=== PATIENT | male | born 1985 | race African-American/Black ===

== ENCOUNTER 2016-12-10 16:16 | Emergency (ER) | payer OTHER ==
[2016-12-10] MEDS ORDERED: Penicillin G Benzathine 1,200,000 Units/2 ML Syringe IM ONE (17:34)
[2016-12-10] MEDS ORDERED: Ibuprofen 800 MG Tab PO ONE (17:36)
--- NOTE | 2016-12-10 17:41 | EDM.PDOC ---
ED HPI GENERAL MEDICAL PROBLEM - General Chief Complaint: ENT Problem Stated Complaint: SORE THROAT Time Seen by Provider: 12/10/16 17:15 Source of Information: Reports: Patient History Limitations: Reports: No Limitations - History of Present Illness INITIAL COMMENTS - FREE TEXT/NARRATIVE: HISTORY AND PHYSICAL: History of present illness: [31-year-old male with a prior history of strep throat in the distant past now complaining that he thinks he has tonsillitis again. It hurts to swallow. Denies headache or stiff neck. No fevers chills sweats or shaking chills. No other complaints] Review of systems: As per history of present illness and below otherwise all systems reviewed and negative. Past medical history: As per history of present illness and as reviewed below otherwise noncontributory. Surgical history: As per history of present illness and as reviewed below otherwise noncontributory. Social history: No reported history of drug or alcohol abuse. Family history: As per history of present illness and as reviewed below otherwise noncontributory. Physical exam: Well-appearing patient no acute distress oropharynx with bilateral tonsillar exudates with no mass or asymmetry midline uvula no stridor normal voice no anterior cervical adenopathy supple neck no meningismus. Remainder exam is benign HEENT: Atraumatic, normocephalic, pupils reactive, negative for conjunctival pallor or scleral icterus, mucous membranes moist, neck supple, nontender, trachea midline. Lungs: Clear to auscultation, breath sounds equal bilaterally, chest nontender. Heart: S1S2, regular, negative for clicks, rubs, or JVD. Abdomen: Soft, nondistended, nontender. Negative for masses or hepatosplenomegaly. Negative for costovertebral tenderness. Pelvis: Stable nontender. Genitourinary: Deferred. Rectal: Deferred. Extremities: Atraumatic, negative for cords or calf pain. Neurovascular unremarkable. Neuro: Awake, alert, oriented. Cranial nerves grossly unremarkable. Cerebellum unremarkable. Motor and sensory unremarkable throughout. Exam nonfocal. Diagnostics: [] Therapeutics: [Bicillin IM] Impression: [Pharyngitis] Plan: [Signs and symptoms consistent with strep pharyngitis in a well-appearing patient with unremarkable vitals. Patient is requesting Bicillin IM as he has previously had excellent results and prompt relief and he prefers the convenience of this pharmacologic modality. His were take Motrin Tylenol as needed as well as drink plenty of fluids follow-up with his in one day and return immediately for new severe or worsening symptoms] Definitive disposition and diagnosis as appropriate pending reevaluation and review of above. Throat Pain Score (Numeric/FACES): 7 - Related Data Allergies Allergy/AdvReac Type Severity Reaction Status Date / Time No Known Allergies Allergy Verified 12/10/16 16:26 Home Meds: Home Meds . [No Known Home Meds] 12/10/16 [History] Past Medical History - Past Health History Medical/Surgical History: Denies Medical/Surgical History - Infectious Disease History Infectious Disease History: Reports: Chicken Pox Social & Family History - Tobacco Use Smoking Status *Q: Never Smoker - Caffeine Use Caffeine Use: Reports: Energy Drinks, Soda - Recreational Drug Use Recreational Drug Use: No ED ROS GENERAL - Review of Systems Review Of Systems: See Below (History of present illness) ED EXAM, GENERAL - Physical Exam Exam: See Below (History of present illness) Course - Vital Signs Last Recorded V/S: Last Vital Signs Temp 36.7 C 12/10/16 16:27 Pulse 77 12/10/16 16:27 Resp 16 12/10/16 16:27 BP 117/66 12/10/16 16:27 Pulse Ox 96 12/10/16 16:27 - Orders/Labs/Meds Orders: Active Orders 24 hr Category Date Time Status Ibuprofen [Motrin] Med 12/10/16 17:36 Once 800 mg PO ONETIME ONE Medication Orders Ibuprofen (Motrin) 800 mg PO ONETIME ONE Stop: 12/10/16 17:37 Meds: Medications Generic Name Dose Route Start Last Admin Trade Name Freq PRN Reason Stop Dose Admin Ibuprofen 800 mg 12/10/16 17:36 Motrin PO 12/10/16 17:37 ONETIME ONE Discontinued Medications Generic Name Dose Route Start Last Admin Trade Name Freq PRN Reason Stop Dose Admin Penicillin G Benzathine 1.2 millunits 12/10/16 17:34 Bicillin L-A IM 12/10/16 17:35 ONETIME ONE Departure - Departure Time of Disposition: 17:39 Disposition: Home, Self-Care 01 Condition: Good Clinical Impression: Pharyngitis - Discharge Information Referrals: PCP,None [Primary Care Provider] - Forms: ED Department Discharge Additional Instructions: You have pharyngitis. Based on your physical findings is most likely that this is caused by a strep infection which requires antibiotics for a cure. Per your request for an IM injection you've been given 1.2 million units of benzathine penicillin. This medication will be long-acting and released from your muscle over a 10 day. Providing adequate antibiotic treatment for your infection. Rest and drink plenty of fluids. Take ibuprofen 800 mg every 6 hours and Tylenol as needed for pain. Follow-up with your DrOh in one to 2 days and return immediately for new severe or worsening symptoms specifically for progressively worsening difficulty swallowing, voice changes or difficulty breathing - My Orders Last 24 Hours: My Active Orders 12/10/16 17:36 Ibuprofen [Motrin] 800 mg PO ONETIME ONE - Assessment/Plan Last 24 Hours: My Active Orders 12/10/16 17:36 Ibuprofen [Motrin] 800 mg PO ONETIME ONE
[2016-12-10 18:13] VITALS: BP 117/65
== END 2016-12-10 18:12 | disposition home or self-care (01) ==
LOC: MW.ED 16:16
DX: J02.9 Acute pharyngitis, unspecified (principal)
CPT/HCPCS: 96372; 99282; A9270; J0561

== ENCOUNTER 2016-12-13 08:21 | Emergency (ER) | payer OTHER ==
[2016-12-13] MEDS ORDERED: Dexamethasone 10 MG/ML SDV IM ONE (08:36)
[2016-12-13 09:27] VITALS: BP 124/71
== END 2016-12-13 08:55 | disposition home or self-care (01) ==
LOC: MW.ED 08:21
DX: J03.90 Acute tonsillitis, unspecified (principal)
CPT/HCPCS: 96372; 99282; J1100; 99283